=== PATIENT | female | born 1945 | race Caucasian/White ===

== ENCOUNTER 2020-11-25 15:28 | Emergency (ER) | payer OTHER ==
[2020-11-25 17:02] VITALS: TEMP 97.7; BMI 27.6
[2020-11-25] MEDS ORDERED: ACETAMINOPHEN 500 MG TABLET (FP) PO ONE (19:25)
[2020-11-25] MEDS ORDERED: ACETAMINOPHEN 500 MG TABLET (FP) ONE (19:50)
[2020-11-25 20:21] VITALS: BP 168/65; PULSE 78
== END 2020-11-25 20:10 | disposition home or self-care (01) ==
LOC: FER 15:28
DX: S00.83XA Contusion of other part of head, initial encounter (principal); W06.XXXA Fall from bed, initial encounter
CPT/HCPCS: 70450-TC; 70486-TC; 72125-TC; 73030-TC-RT-FY; 99284-25

== ENCOUNTER 2022-10-23 12:25 | Emergency (ER) | payer OTHER ==
[2022-10-23 12:45] VITALS: BP 131/92; PULSE 66; RESP 18; TEMP 98.2; BMI 24.5
[2022-10-23] MEDS ORDERED: KETOROLAC TROMETHAMINE 60 MG/2 ML VIAL IM ONE (12:45)
[2022-10-23] MEDS ORDERED: LIDOCAINE 5% TOPICAL PATCH TP ONE (12:46)
[2022-10-23] MEDS ORDERED: LIDOCAINE 5% TOPICAL PATCH ONE (12:54)
[2022-10-23] MEDS ORDERED: KETOROLAC TROMETHAMINE 15 MG/ML VIAL ONE (12:54)
[2022-10-23] MEDS ORDERED: diphenhydrAMINE HCL 50 MG CAPSULE ONE (13:29)
[2022-10-23] MEDS ORDERED: diphenhydrAMINE HCL 25 MG CAPSULE (FP) PO ONE (13:32)
[2022-10-23] MEDS ORDERED: LIDOCAINE PATCH REMOVAL MC SCH (22:00)
== END 2022-10-23 14:35 | disposition home or self-care (01) ==
LOC: FER 12:25
PROC: 3E0233Z Introduction of Anti-inflammatory into Muscle, Percutaneous Approach (ICD-10-PCS; principal; 2022-10-23)
DX: M25.512 Pain in left shoulder (principal)
CPT/HCPCS: 73030-TC-RT-FY; 99284-25